=== PATIENT | female | born 1985 | race Caucasian/White ===

== ENCOUNTER 2016-11-07 09:24 | Outpatient (CLI) | payer OTHER ==
[~2016-11-07] VITALS: Ht 167.6 cm; Wt 87.0 kg
[~2016-11-07 09:24] MED LIST: ABILIFY5 MG PO; BENTYL20 MG PO; BUSPAR5 MG PO; CELEXA10 MG PO; CELEXA20 MG PO; CHOLESTYRAMINE P4 GM PO; COMPAZINE10 MG PO; DESYREL100 MG PO; DICYCLOMINE HCL10 MG PO; DIFICID200 MG PO; FLAGYL500 MG PO; FLEXERIL10 MG PO; FLORASTOR250 MG PO; Folvite PO; IBUPROFEN200 M1 PO; KLONOPIN1 MG PO; MAGNESIUM250 MG PO; METFORMIN HCL500 MG PO; MOTRIN600 MG PO; Motrin PO; NOHOMEMEDS; NORCO 5/3251 TABLET PO; OMEPRAZOLE40 M1 PO; PROBIOTIC1 EAC1 PO; PROMETHAZINE HC25 M1 PO; PROMETHAZINE12.5 M1 PO; PROZAC20 MG PO; REQUIP1 MG PO; SPRINTEC1 EACH PO; TRAZODONE HCL100 MG PO; TROKENDI XR100 MG PO; TYLENOL REGULA325 MG PO; ULTRAM50 MG PO; Vicodin,Lortab 5/500 PO; XANAX0.5 MG PO; ZOFRAN ODT4 MG PO
[2016-11-07] MEDS ORDERED: PRENATAL TABLE1 EAC3 PO (10:00)
[2016-11-07] MEDS ORDERED: ZOLOFT50 MG PO (10:01)
[2016-11-07] MEDS ORDERED: FIORICET 50-301 EACH PO (10:01)
[2016-11-07 10:03] VITALS: BP 104/62
[2016-11-07 11:43] VITALS: BP 121/72
[2016-11-07 14:04] VITALS: BP 116/60
[2016-11-07 16:04] VITALS: BP 119/60
[2016-11-07] MEDS ORDERED: PROMETHAZINE HC25 M1 PO (16:33)
[2016-11-07 16:39] LABS: CANDIDA DNA PROBE NEGATIVE; GARDNERELLA DNA PROBE NEGATIVE; INTERNAL CONTROL VALID? YES
== END 2016-11-07 17:35 | disposition home or self-care (01) ==
LOC: LDRP-OP 09:24 → 2WEST 09:25 → LDRP-OP 02-04 11:36
PROVIDERS: Advanced Practice Midwife
DX: O26.893 Other specified pregnancy related conditions, third trimester (principal); R11.2 Nausea with vomiting, unspecified; Z3A.31 31 weeks gestation of pregnancy
CPT/HCPCS: 59025; 87480; 87510; 87660; G0378; J2405; J7120; Q0169

== ENCOUNTER 2016-12-06 08:37 | Outpatient (CLI) | payer OTHER ==
[2016-12-06 08:36] VITALS: BP 130/84
[~2016-12-06 08:37] MED LIST changes: +FIORICET 50-301 EACH PO; +PRENATAL TABLE1 EAC3 PO; +ZOLOFT50 MG PO
[2016-12-06 09:33] VITALS: BP 130/85
== END 2016-12-06 10:45 | disposition home or self-care (01) ==
LOC: LDRP-OP 08:37 → 2WEST 08:38 → LDRP-OP 02-04 21:30
DX: O26.893 Other specified pregnancy related conditions, third trimester (principal); R10.9 Unspecified abdominal pain; O36.8930 Maternal care for other specified fetal problems, third trimester, not applicable or unspecified; Z3A.35 35 weeks gestation of pregnancy
CPT/HCPCS: 59025; G0378

== ENCOUNTER 2017-07-02 08:23 | Emergency (ER) | payer OTHER ==
[~2017-07-02] VITALS: Ht 167.6 cm; Wt 89.9 kg
[2017-07-02 09:00] LABS: HEMATOCRIT 36.1 % (36.0-46.0); HEMOGLOBIN 12.4 G/DL (11.9-15.5); MCH 30.2 PG (29.0-34.0); MCHC 34.3 G/DL (30.0-36.0); PLATELET COUNT 331 K/uL (156-360); RBC DIS.WIDTH-CV 12.8 % (11.8-14.6); RBC DIS.WIDTH-SD 41.2 % (39-53); WHITE BLOOD COUNT 14.3 K/uL (4.1-10.2)
[2017-07-02 09:06] LABS: ALBUMIN 4.1 g/dL (3.2-4.8); CHLORIDE 107 mEq/L (99-109); SODIUM 144 mEq/L (136-147)
[2017-07-02 09:08] LABS: GLUCOSE 103 mg/dL (70-99); TOTAL PROTEIN 6.8 g/dL (6.4-8.3)
[2017-07-02 09:10] LABS: TOTAL BILIRUBIN 0.4 mg/dL (0.0-1.0)
[2017-07-02 09:12] LABS: ALKALINE PHOSPHATASE 92 IU/L (3-129); CREATININE 0.8 mg/dL (0.6-1.3); GFR ESTIMATE (CALCULATED) > 59 mL/min/
[2017-07-02 09:13] LABS: AST (GOT) 19 IU/L (2-34); UREA NITROGEN (BUN) 16 mg/dL (9-23)
[2017-07-02 09:14] LABS: DIRECT BILIRUBIN 0.2 mg/dL (0.0-0.3)
[2017-07-02 09:15] LABS: ALT (GPT) 17 IU/L (3-49)
[2017-07-02 09:20] LABS: QUANTITATIVE HCG < 4.0 MIU/ML
[2017-07-02 09:30] LABS: APPEARANCE CLEAR ((CLEAR)); BILIRUBIN NEGATIVE; BLOOD MODERATE; COLOR YELLOW ((YELLOW)); GLUCOSE (STRIP) NEGATIVE; KETONES NEGATIVE; LEUKOCYTES NEGATIVE; NITRITE NEGATIVE; PROTEIN (STRIP) 30; SPECIFIC GRAVITY 1.019 (1.000-1.030); UROBILINOGEN 0.2 MG/DL (0.2-1.0)
[2017-07-02 09:38] LABS: BACTERIA 1+ /HPF; EPITHELIAL CELLS 1+ /HPF; HYALINE CASTS 0-5 /LPF; MUCUS TRACE /LPF; RED BLOOD CELLS 40-50 /HPF (0-5); UCUL ADDED? NO; WHITE BLOOD CELLS 0-5 /HPF (0-5)
[2017-07-02] MEDS ORDERED: FLOMAX0.4 MG PO (11:40)
[2017-07-02] MEDS ORDERED: NAPROSYN500 MG PO (11:40)
[2017-07-02] MEDS ORDERED: ZOFRAN ODT4 MG PO (11:40)
[2017-07-02] MEDS ORDERED: LORTAB 5-325 M1 EACH PO (11:40)
[2017-07-02 12:11] VITALS: BP 120/66
== END 2017-07-02 12:11 | disposition home or self-care (01) ==
LOC: EME 08:23
DX: N20.0 Calculus of kidney (principal); Z87.442 Personal history of urinary calculi
CPT/HCPCS: 74019; 76770; 80048; 80076; 81003; 84702; 85027; 99281; 99283; J1885